=== PATIENT | male | born 1990 | race Caucasian/White ===

== ENCOUNTER → 2019-08-23 | Outpatient (CLI) | payer BC ==
--- NOTE | 2019-08-23 08:24 | CT ---
EXAMINATION TYPE: CT ankle LT wo con DATE OF EXAM: 08/23/2019 COMPARISON: None HISTORY: Pain CT DLP: 217.00 mGycm Automated exposure control for dose reduction was used. CONTRAST: None TECHNIQUE: Axial images 2 mm thick sections. Reconstructed images in the coronal and sagittal planes. FINDINGS: There is an oblique fracture of the distal fibula. In the coronal reconstructed images the ankle mort ise appears intact. The distal fibula have one third one shaft width step off laterally in relation t o the distal fracture fragment. Distal tibia appears intact. No posterior tibial or medial malleolar fractures are evident. Soft tissues swelling is over the lateral malleolus fracture site. Mild diffus e soft tissue swelling is present within the ankle extending into the foot. Ankle mortise appears intact. IMPRESSION: OBLIQUE FRACTURE DISTAL FIBULA. THERE IS SLIGHT LATERAL DISPLACEMENT OF THE DISTAL FIBULA IN RELATION TO THE DISTAL FRACTURE FRAGMENT.
== END | disposition home or self-care (01) ==
LOC: RADCTMAIN 07:17
PROVIDERS: ATTEND Orthopaedic Surgery
DX: S82.432A Displaced oblique fracture of shaft of left fibula, initial encounter for closed fracture (principal)